=== PATIENT | female | born 1975 | race Caucasian/White ===

== ENCOUNTER 2016-10-13 08:26 | Emergency (ER) | payer OTHER ==
[~2016-10-13] VITALS: Ht 165.1 cm; Wt 96.6 kg
[~2016-10-13 08:26] MED LIST: 'PARAFON FORTE500 M1 PO; ANAPROX DS550 MG PO; ATIVAN2 MG PO; AUGMENTIN 875 M1 TAB PO; BACTRIM PO; BENADRYL50 MG PO; BENTYL10 MG PO; CARAFATE1 G1 PO; CATAFLAM50 MG PO; CELEXA40 MG PO; CIPROFLOXACIN500 MG PO; CYMBALTA60 MG PO; DAYPRO600 M1 PO; DITROPAN5 MG PO; FLEXERIL; FLEXERIL10 MG PO; FLOMAX0.4 MG PO; HYDROCODONE BIT1 T11 PO; HYDROXYZINE10 MG PO; IBUPROFEN 200200 MG PO; KEFLEX500 MG PO; LAMICTAL150 MG PO; LAMICTAL200 MG PO; LOMOTIL 0.025 M1 TA1 PO; MOTRIN600 MG PO; MOTRIN800 MG PO; NAPROSYN; NAPROSYN500 MG PO; NORCO 325 MG-51 TAB PO; OMEPRAZOLE20 MG PO; PEPCID20 MG PO; PEPCID40 MG PO; PERCOCET 325 MG1 TA5 PO; PERCOCET 325 MG1 TA7 PO; PREDNISONE10 MG PO; PREDNISONE50 MG PO; PRILOSEC40 MG PO; PROTONIX40 MG PO; PYRIDIUM200 MG PO; RESTORIL30 MG PO; TRAMADOL HCL50 MG PO; ULTRAM50 MG PO; VICO10300 PO; VICODIN 500 MG-1 TAB PO; VITAMIN D32000 I1 PO; WELLBUTRIN XL300 MG; WELLBUTRIN XL300 MG PO; Wellbutrin Xl150 MG PO; ZANTAC150 MG PO; ZOFRAN ODT4 MG SL; ZOFRAN4 MG PO; ZYRTEC10 MG PO; [UNRECOGNIZED DRUG - OTHER] PO
[2016-10-13] MEDS ORDERED: Fioricet 325 MG1 TAB PO (10:25)
[2016-10-13] MEDS ORDERED: ZOFRAN ODT4 MG SL (10:25)
[2016-11-16] MEDS ORDERED: VERAPAMIL HCL40 MG PO (09:34)
== END 2016-10-13 10:34 | disposition home or self-care (01) ==
LOC: ED 08:26
DX: G43.909 Migraine, unspecified, not intractable, without status migrainosus (principal); Z88.2 Allergy status to sulfonamides; Z88.8 Allergy status to other drugs, medicaments and biological substances; Z91.041 Radiographic dye allergy status

== ENCOUNTER 2017-07-16 17:18 | Emergency (ER) | payer OTHER ==
[~2017-07-16] VITALS: Ht 165.1 cm; Wt 98.4 kg
[~2017-07-16 17:18] MED LIST changes: +Fioricet 325 MG1 TAB PO; +VERAPAMIL HCL40 MG PO
[2017-07-16] MEDS ORDERED: ROBAXIN500 M1 PO (19:47)
[2017-07-16] MEDS ORDERED: ANAPROX DS550 MG PO (19:47)
== END 2017-07-16 19:59 | disposition home or self-care (01) ==
LOC: ED 17:18
DX: S16.1XXD Strain of muscle, fascia and tendon at neck level, subsequent encounter (principal); M54.5 Low back pain; F10.10 Alcohol abuse, uncomplicated; Z91.041 Radiographic dye allergy status; Z88.2 Allergy status to sulfonamides; Z88.8 Allergy status to other drugs, medicaments and biological substances; Z79.899 Other long term (current) drug therapy; V89.2XXD Person injured in unspecified motor-vehicle accident, traffic, subsequent encounter

== ENCOUNTER 2017-12-29 05:20 | Emergency (ER) | payer BC ==
[~2017-12-29] VITALS: Ht 165.1 cm; Wt 95.7 kg
[~2017-12-29 05:20] MED LIST changes: +ROBAXIN500 M1 PO
[2017-12-29 05:39] LABS: BASO # 0.1 10*3/uL (0.0-0.1); BASO % 0.6 % (0.0-1.0); EOS # 0.1 10*3/uL (0.0-0.4); EOS % 0.9 % (1.0-4.0); HEMATOCRIT 39.3 % (37.0-47.0); LYMPH # 2.8 10*3/uL (1.3-4.4); LYMPH % 30.8 % (27.0-41.0); MEAN CELL VOLUME 92.7 fl (81.0-99.0); MEAN CORPUSCULAR HGB 30.7 pg (27.0-31.0); MEAN CORPUSCULAR HGB CONC 33.1 g/dl (33.0-37.0); MEAN PLATELET VOLUME 10.6 fl (9.6-12.3); MONO # 0.7 10*3/uL (0.1-1.0); MONO % 7.5 % (3.0-9.0); NEUT # 5.4 10*3/uL (2.3-7.9); NEUT % 59.5 % (47.0-73.0); PLATELET COUNT AUTOMATED 213 10*3/uL (130-400); RED BLOOD COUNT 4.24 10*6/uL (4.10-5.10); RED CELL DISTRI WIDTH 12.9 % (0-14.5)
[2017-12-29 05:54] LABS: ALBUMIN 3.6 gm/dl (3.1-4.5); ALKALINE PHOSPHATASE 94 U/L (45-117); BETA-HCG, QUANT < 1.0 mIU/mL (1-3); BUN 14 mg/dl (7-24); CHLORIDE 108 mmol/L (98-107); CREATININE 0.96 mg/dL (0.55-1.02); INTERNATIONAL NORM RATIO 0.9 (2.0-3.5); LIPASE 113 U/L (73-393); SGOT/AST 14 IU/L (3-35); SGPT/ALT 21 U/L (12-78); SODIUM 141 mmol/L (136-145); TOTAL PROTEIN 7.1 gm/dL (6.4-8.2)
[2017-12-29 06:27] LABS: BILIRUBIN NEGATIVE (NEGATIVE); BLOOD 3+ (NEGATIVE); CLARITY SL CLOUDY (CLEAR); COLOR YELLOW (YELLOW); GLUCOSE NEGATIVE (NEGATIVE); KETONE NEGATIVE (NEGATIVE); LEUKO ESTERASE NEGATIVE (NEGATIVE); NITRITE NEGATIVE (NEGATIVE); PH 5.5 (5.0-9.0); SPECIFIC GRAVITY >= 1.030 (1.005-1.030); UROBILINOGEN 0.2 E.U./dl (0.2-1.0)
[2017-12-29 06:42] LABS: BACTERIA TRACE; CALCIUM OXALATE CRYSTALS 1+; EPITHELIAL CELLS 21-30; RBC 41-50 rbc/hpf (0-2)
[2017-12-29] MEDS ORDERED: KETOROLAC10 MG PO (08:17)
== END 2017-12-29 08:32 | disposition home or self-care (01) ==
LOC: ED 05:20
PROVIDERS: Emergency Medicine Emergency Medical Services
DX: N20.1 Calculus of ureter (principal); G43.909 Migraine, unspecified, not intractable, without status migrainosus; Z91.041 Radiographic dye allergy status; Z88.2 Allergy status to sulfonamides; Z88.8 Allergy status to other drugs, medicaments and biological substances; Z79.899 Other long term (current) drug therapy

== ENCOUNTER → 2019-01-31 | Outpatient (CLI) | payer BC ==
[~2019-01-31] MED LIST changes: +KETOROLAC10 MG PO; +Motrin,Rufen800 MG PO; +Orphenadrine C100 MG PO
== END | disposition home or self-care (01) ==
LOC: MRI 01-30 15:00
DX: G43.919 Migraine, unspecified, intractable, without status migrainosus (principal)

== ENCOUNTER → 2019-03-11 | Outpatient (CLI) | payer BC | END | disposition home or self-care (01) | LOC: RAD 10:12 | DX: M54.16 Radiculopathy, lumbar region (principal); R20.0 Anesthesia of skin; Z91.81 History of falling ==

== ENCOUNTER 2019-04-07 06:53 | Emergency (ER) | payer BC ==
[~2019-04-07] VITALS: Ht 165.1 cm; Wt 95.3 kg
[~2019-04-07 06:53] MED LIST changes: -Motrin,Rufen800 MG PO; -Orphenadrine C100 MG PO
[2019-04-07] MEDS ORDERED: Orphenadrine C100 MG PO (09:01)
[2019-04-07] MEDS ORDERED: Motrin,Rufen800 MG PO (09:01)
== END 2019-04-07 09:59 | disposition home or self-care (01) ==
LOC: ED 06:53
DX: S16.1XXA Strain of muscle, fascia and tendon at neck level, initial encounter (principal); G43.909 Migraine, unspecified, not intractable, without status migrainosus; Z91.041 Radiographic dye allergy status; Z88.2 Allergy status to sulfonamides; Z88.8 Allergy status to other drugs, medicaments and biological substances; X58.XXXA Exposure to other specified factors, initial encounter; Y93.89 Activity, other specified; Y92.89 Other specified places as the place of occurrence of the external cause; Y99.8 Other external cause status